=== PATIENT | female | born 1940 | race Caucasian/White ===

== ENCOUNTER 2022-03-25 07:14 | Inpatient (IN) | payer MEDICARE ==
[~2022-03-25] VITALS: Ht 154.9 cm; Wt 54.4 kg
[2022-03-25 10:41] LABS: BASOPHILS ABSOLUTE AUTO 0.03 K/mm3 (0.00-0.23); BASOPHILS PERCENT AUTO 0 % (0-2); EOSINOPHILS ABSOLUTE AUTO 0.07 K/mm3 (0.00-0.68); EOSINOPHILS PERCENT AUTO 1 % (0-6); Hematocrit 42.1 % (33.0-51.0); Hemoglobin 13.8 g/dL (11.5-16.0); IMMATURE GRAN ABSOLUTE AUTO 0.05 K/mm3 (0.00-0.10); IMMATURE GRAN PERCENT AUTO 0 % (0-1); LYMPHOCYTES ABSOLUTE AUTO 1.21 K/mm3 (0.84-5.20); LYMPHOCYTES PERCENT AUTO 10 % (21-46); MONOCYTES ABSOLUTE AUTO 0.56 K/mm3 (0.16-1.47); MONOCYTES PERCENT AUTO 5 % (4-13); Mean Corpuscular HGB 29.1 pg (26.0-34.0); Mean Corpuscular HGB Conc 32.8 g/dL (31.5-36.5); Mean Corpuscular Volume 89 fL (80-100); Mean Platelet Volume 10.6 fL (9.1-12.4); NEUTROPHILS ABSOLUTE AUTO 10.11 K/mm3 (1.96-9.15); NEUTROPHILS PERCENT AUTO 84 % (41-73); Platelet Count 209 K/mm3 (150-400); RDW Coefficient Variation 13.9 % (11.7-14.2); RDW Standard Deviation 45.2 fL (35.1-46.3); Red Blood Cell Count 4.75 M/mm3 (3.80-5.20); White Blood Cell Count 12.03 K/mm3 (4.00-11.30)
[2022-03-25 12:18] LABS: Albumin, Blood 3.5 g/dL (3.4-5.0); Albumin/Globulin Ratio 0.8 (0.8-1.8); Bilirubin, Total 0.4 mg/dL (0.1-1.0); Calcium, Blood 8.6 mg/dL (8.5-10.1); Creatinine, Blood 0.67 mg/dL (0.40-1.00); Globulin, Blood 4.2 g/dL (2.2-4.0); Potassium, Blood 5.9 mmol/L (3.5-5.5); Total Protein, Blood 7.7 g/dL (6.4-8.2)
[2022-03-25] MEDS ORDERED: DONEPEZIL HCL10 MG PO (15:34)
[2022-03-25] MEDS ORDERED: LEVSOD88 PO (15:34)
--- NOTE | 2022-03-25 18:07 | NUR ---
PT AOX4 AND COOPERATIVE OF CARE. PT CONTINUES TO HAVE R SIDED WEAKNESS. PT STATES SHE DOES HAVE SOME BACK PAIN AT THIS TIME WILL TREAT PER EMAR. PT ARRIVED AT 1630. CALL LIGHT IS WITHIN REACH WILL CONTINUE TO MONITOR.
[2022-03-25 18:41] LABS: Bun/Creatinine Ratio 13.8 (12.0-20.0); Calcium, Blood 8.5 mg/dL (8.5-10.1); Creatinine, Blood 0.72 mg/dL (0.40-1.00)
[2022-03-25 18:42] LABS: Potassium, Blood 3.6 mmol/L (3.5-5.5)
[2022-03-26 07:24] LABS: Bun/Creatinine Ratio 12.2 (12.0-20.0); Calcium, Blood 8.4 mg/dL (8.5-10.1); Creatinine, Blood 0.74 mg/dL (0.40-1.00); Potassium, Blood 3.7 mmol/L (3.5-5.5)
[2022-03-26 09:20] LABS: BASOPHILS ABSOLUTE AUTO 0.04 K/mm3 (0.00-0.23); BASOPHILS PERCENT AUTO 1 % (0-2); EOSINOPHILS ABSOLUTE AUTO 0.24 K/mm3 (0.00-0.68); EOSINOPHILS PERCENT AUTO 4 % (0-6); Hematocrit 37.8 % (33.0-51.0); Hemoglobin 12.5 g/dL (11.5-16.0); IMMATURE GRAN ABSOLUTE AUTO 0.01 K/mm3 (0.00-0.10); IMMATURE GRAN PERCENT AUTO 0 % (0-1); LYMPHOCYTES ABSOLUTE AUTO 1.13 K/mm3 (0.84-5.20); LYMPHOCYTES PERCENT AUTO 17 % (21-46); MONOCYTES ABSOLUTE AUTO 0.58 K/mm3 (0.16-1.47); MONOCYTES PERCENT AUTO 9 % (4-13); Mean Corpuscular HGB 28.9 pg (26.0-34.0); Mean Corpuscular HGB Conc 33.1 g/dL (31.5-36.5); Mean Corpuscular Volume 88 fL (80-100); Mean Platelet Volume 10.4 fL (9.1-12.4); NEUTROPHILS ABSOLUTE AUTO 4.74 K/mm3 (1.96-9.15); NEUTROPHILS PERCENT AUTO 70 % (41-73); Platelet Count 195 K/mm3 (150-400); RDW Coefficient Variation 13.6 % (11.7-14.2); RDW Standard Deviation 43.8 fL (35.1-46.3); Red Blood Cell Count 4.32 M/mm3 (3.80-5.20); White Blood Cell Count 6.74 K/mm3 (4.00-11.30)
--- NOTE | 2022-03-26 11:38 | NUR ---
"Spiritual Care | Pt. Request Pt. is awake in bed and welcomes my visit. Pts. friend is present. Pt. is most pleasant. Pt. displays evidence of awareness, engagement, and eitan. Facilitate a life review. Pt. verbalizes an expectation that she will be discharged soon. Normalize the Pt. experience. Prayed with Pt.Pt. and friend both verbalize gratitude for the spiritual care visit."
[2022-03-26] MEDS ORDERED: ASPI81CH PO (11:57)
[2022-03-26] MEDS ORDERED: ATOR80 PO (11:58)
--- NOTE | 2022-03-26 13:43 | NUR ---
DISCHARGE: PT DISCHARGED VIA AUTOMOBILE WITH FRIEND. PT WILL BE STAYING WITH FRIEND UNTIL TUESDAY THEN GOING BACK TO [place]. PT AND FRIEND WERE TALKED TO ABOUT PT'S MEDICATIONS AND THE NEED FOR A FOLLOW-UP APPOINTMENT. TELE AND IV D/C'D WITHOUT COMPLICATIONS. ALL BELONGINGS SENT WITH PT.
== END 2022-03-26 12:35 | disposition home health service (06) | DRG 65 ==
LOC: ER 07:14 → ERHOLD 15:17 → MEDS 17:15
PROVIDERS: Family Medicine; Nurse Practitioner Acute Care; Student in an Organized Health Care Education/Training Program; ADMIT Hospitalist
DX: I63.81 Other cerebral infarction due to occlusion or stenosis of small artery (principal); G81.91 Hemiplegia, unspecified affecting right dominant side; F03.90 Unspecified dementia, unspecified severity, without behavioral disturbance, psychotic disturbance, mood disturbance, and anxiety; E03.9 Hypothyroidism, unspecified; E87.5 Hyperkalemia; Z28.21 Immunization not carried out because of patient refusal; Z98.890 Other specified postprocedural states
CPT/HCPCS: 36415; 70450; 70496; 70498; 70551; 72100; 80048; 80053; 85025; 92610; 93005; 93010; 93306; 97112; 97116; 97162; 97166; 97530; 97535; 99285-25; A9270; J1650; J7030; Q9967